=== PATIENT | female | born 1990 | race American Indian/Alaskan Native ===

== ENCOUNTER 2018-08-29 16:34 | Emergency (ER) | payer OTHER ==
[2018-08-29 16:54] VITALS: BP 121/81; PULSE 100; RESP 20; TEMP 99; O2SAT 99
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
== END 2018-08-29 18:53 | disposition home or self-care (01) ==
LOC: C.ER 16:34
DX: T74.21XA Adult sexual abuse, confirmed, initial encounter (principal)